=== PATIENT | female | born 1945 | race Caucasian/White ===

== ENCOUNTER → 2018-05-20 | Outpatient (CLI) | payer MEDICARE, OTHER ==
--- NOTE | 2018-05-20 14:03 | BD ---
EXAMINATION TYPE: Axial Bone Density DATE OF EXAM: 05/20/2018 COMPARISON: 05.19.2016 CLINICAL HISTORY: 73 YR OLD FEMALE.....ICD-10 CODE: Z79.890 POST MENOPAUSAL, M85.8 OSTEOPENIA Height: 63 Weight: 145 FRAX RISK QUESTIONS: History of Fracture in Adulthood: YES RISK FACTORS HISTORY OF: HX OF FINGER FRACTURES.....AT 72 YRS OLD Active: YES Diet low in dairy products/other sources of calcium: NO Postmenopausal woman: AT 54 YRS OLD MEDICATIONS: Additional Medications: HORMONE HAM, VIT D, CALCIUM, ASPIRIN, HX OF CHEMO AND RADIATION, Additional History: LT BREAST CANCER, 2016 EXAM MEASUREMENTS: Bone mineral densitometry was performed using the [employer] System. Bone mineral density as measured about the Lumbar spine is: ----- L1-L4(G/cm2): 0.795 T Score Values are as follows: ----- L1: -4.1 ----- L2: -3.7 ----- L3: -3.0 ----- L4: -2.4 ----- L1-L4: -3.2 Bone mineral density has: Increased 2.3% since study of: 05.19.2016 Bone mineral density about the R hip (g/cm2): 0.740 Bone mineral density about the L hip (g/cm2): 0.774 T Score values are as follows: -----R Neck: -2.0 -----L Neck: -1.8 -----R Total: -2.1 -----L Total: -1.9 Bone mineral density has: Increased 0.4% since study of: 05.19.2016 FRAX%s: THERE IS A 18.9% CHANCE OF A MAJOR OSTEOPOROTIC FX AND A 3.7% FOR HIP FX.....PROBABILITY O F FX IN 10 YRS TIME IMPRESSION: Osteoporosis (T Score less than -2.5) with regards to the lumbar spine. There is increased fracture risk and therapy is usually indicated based on age. Re-Screen 1-2 years. NOTE: T-SCORE=SD OF THE YOUNG ADULT MEAN.
== END | disposition home or self-care (01) ==
LOC: RADBDWWP 09:57
PROVIDERS: ATTEND Internal Medicine Hematology & Oncology
DX: C50.112 Malignant neoplasm of central portion of left female breast (principal); M81.0 Age-related osteoporosis without current pathological fracture; Z79.890 Hormone replacement therapy
CPT/HCPCS: 77080

== ENCOUNTER 2019-07-04 15:00 | Emergency (ER) | payer MEDICARE, OTHER ==
[2019-07-04 15:10] VITALS: BP 115/73; PULSE 82; RESP 18; TEMP 98.7
--- NOTE | 2019-07-04 16:09 | ED ---
Extremity Problem HPI - General Source: patient, RN notes reviewed Mode of arrival: wheelchair Limitations: no limitations <El Chacko - Last Filed: 07/04/19 16:26> <Srikanth Ponce - Last Filed: 07/04/19 17:50> - General Chief complaint: Extremity Problem,Nontraumatic Stated complaint: poss blood clot in leg Time Seen by Provider: 07/04/19 15:17 - History of Present Illness Initial comments: 74-year-old female presented emergency department chief complaint of right leg lump possible blood clot. Patient states that she has had some superficial from phlebitis in the past no DVT. Patient states she no she has some varicose veins so she has a lump the backside of her right leg. She states it is tender at time patient states she's been taking aspirin and increase her water intake states it does put on some but comes back. Patient denies any chest pain or shortness of breath. No trauma. (El Chacko) - Related Data Home Medications Medication Instructions Recorded Confirmed Anastrozole [Arimidex] 1 mg PO DAILY 07/04/19 07/04/19 Aspirin EC [Ecotrin Low Dose] 81 mg PO DAILY 07/04/19 07/04/19 Calcium Carbonate [Calcium] 600 mg PO BID 07/04/19 07/04/19 Cholecalciferol (Vitamin D3) 2,000 unit PO DAILY 07/04/19 07/04/19 [Vitamin D3] Multivitamin/Iron/Folic Acid 1 tab PO DAILY 07/04/19 07/04/19 [Centrum Women Tablet] Allergies Allergy/AdvReac Type Severity Reaction Status Date / Time erythromycin base Allergy INTERNAL Verified 07/04/19 16:13 BLEEDING tetracycline AdvReac CAUSES Verified 07/04/19 16:13 "CRYING JAG" Review of Systems ROS Other: All systems not noted in ROS Statement are negative. <El Chacko - Last Filed: 07/04/19 16:26> ROS Other: All systems not noted in ROS Statement are negative. <Srikanth Ponce - Last Filed: 07/04/19 17:50> ROS Statement: Those systems with pertinent positive or pertinent negative responses have been documented in the HPI. Past Medical History Past Medical History: Cancer Additional Past Medical History / Comment(s): INTERMITTENT FLASHING LIGHT ILEANA EYES AND BLOODY NOSES,CA LT BREAST DX AUG 2015,IRREG HR/STATES THINKS SHE HAD A BLOOD CLOT IN RIGHT LEG 6 MOS AGO. UNDIAGNOSED. History of Any Multi-Drug Resistant Organisms: None Reported Past Surgical History: Tonsillectomy Additional Past Surgical History / Comment(s): D&C Past Anesthesia/Blood Transfusion Reactions: Motion Sickness Past Psychological History: No Psychological Hx Reported Smoking Status: Former smoker Past Alcohol Use History: None Reported Past Drug Use History: None Reported - Past Family History Father Family Medical History: Cancer Additional Family Medical History / Comment(s): LUNG Mother Family Medical History: Cancer Additional Family Medical History / Comment(s): LUNG AND BRAIN <El Chacko - Last Filed: 07/04/19 16:26> General Exam Limitations: no limitations General appearance: alert, in no apparent distress Neck exam: Present: normal inspection. Absent: tenderness, meningismus, lymphadenopathy Respiratory exam: Present: normal lung sounds bilaterally. Absent: respiratory distress, wheezes, rales, rhonchi, stridor Cardiovascular Exam: Present: regular rate, normal rhythm, normal heart sounds. Absent: systolic murmur, diastolic murmur, rubs, gallop, clicks Extremities exam: Present: other (Right lower extremity there are multiple varicosities noted there is a hard lump just proximal to the knee, mild tenderness minimal erythema pedal pulses are equal bilaterally there is mild leg swelling noted.) Skin exam: Present: warm, dry, intact <El Chacko - Last Filed: 07/04/19 16:26> Course <Srikanth Ponce - Last Filed: 07/04/19 17:50> Vital Signs 07/04/19 15:07 Temperature 98.7 F Pulse Rate 82 Respiratory 18 Rate Blood Pressure 115/73 O2 Sat by Pulse 99 Oximetry - Reevaluation(s) Reevaluation #1: 07/04/19 17:50 PA supervision: Case reviewed and evaluated by me. I do agree with the assessment and plan. (Srikanth Ponce) Medical Decision Making <El Chacko - Last Filed: 07/04/19 16:26> - Medical Decision Making 74-year-old female presented right leg lump. This is related to his superficial thrombophlebitis within his varicose vein. Patient will continue aspirin, warm compresses and elevation. Patient will return for worsening symptoms. (El Chacko) Disposition Is patient prescribed a controlled substance at d/c from ED?: No Time of Disposition: 16:28 <El Chacko - Last Filed: 07/04/19 16:26> <Srikanth Ponce - Last Filed: 07/04/19 17:50> Clinical Impression: Superficial thrombophlebitis of right leg Disposition: HOME SELF-CARE Condition: Stable Instructions (If sedation given, give patient instructions): Superficial Thrombophlebitis (ED) Additional Instructions: Please return to the Emergency Department if symptoms worsen or any other concerns. Referrals: None,Stated [Primary Care Provider] - 1-2 days
--- NOTE | 2019-07-04 16:12 | US ---
EXAMINATION TYPE: US venous doppler duplex LE RT DATE OF EXAM: 07/04/2019 4:03 PM COMPARISON: NONE CLINICAL HISTORY: pain. Lump medial knee. SIDE PERFORMED: Right TECHNIQUE: The lower extremity deep venous system is examined utilizing real time linear array sonog tyler with graded compression, doppler sonography and color-flow sonography. VESSELS IMAGED: External Iliac Vein (EIV) Common Femoral Vein Deep Femoral Vein Greater Saphenous Vein * Femoral Vein Popliteal Vein Small Saphenous Vein * Proximal Calf Veins (* superficial vessels) Right Leg: Negative for DVT Grayscale, color doppler, spectral doppler imaging performed of the deep veins of the right lower ext remity. There is normal flow, compressibility, vascular waveforms. Cystic structure seen medial knee area of lump, possible superficial venous thrombosis. IMPRESSION: Cystic structure in the region of palpable abnormality could represent superficial venous thrombosis or subcutaneous cystic lesion. No deep venous thrombosis within the right lower extremity .
== END 2019-07-04 16:50 | disposition home or self-care (01) ==
LOC: EC 15:00
DX: I80.01 Phlebitis and thrombophlebitis of superficial vessels of right lower extremity (principal); I83.891 Varicose veins of right lower extremity with other complications; Z87.891 Personal history of nicotine dependence; Z88.1 Allergy status to other antibiotic agents; Z79.82 Long term (current) use of aspirin; Z79.899 Other long term (current) drug therapy; Z85.3 Personal history of malignant neoplasm of breast
CPT/HCPCS: 99283

== ENCOUNTER → 2019-12-09 | Outpatient (CLI) | payer MEDICARE, OTHER ==
--- NOTE | 2019-12-10 08:35 | PE ---
EXAMINATION TYPE: PET CT fusion skull to thigh DATE OF EXAM: 12/09/2019 COMPARISON: Prior PET/CT September 08, 2015 HISTORY: Breast cancer progress study. History of left-sided cancer diagnosed 2016. TECHNIQUE: Following the intravenous administration of 10.51 mCi of F-18 FDG, whole body images are performed from the skull base to the midthigh. Images are reviewed on the computer in the coronal, a xial, and sagittal planes. Reconstructed rotating images are created on independent workstation and reviewed on the computer. A noncontrast CT is performed in conjunction with the PET scan. SCAN: Subsequent Scan FINDINGS: SKULL BASE AND NECK: No new areas of suspicious hypermetabolic uptake. CHEST, MEDIASTINUM, AND HILAR REGION: No new areas of suspicious hypermetabolic uptake. Left breast i mplant noted. No recurrent left axillary adenopathy. ABDOMEN AND PELVIS: No new areas of suspicious hypermetabolic uptake. OSSEOUS STRUCTURES: No new areas of suspicious hypermetabolic uptake. OTHER CT: Mild emphysematous changes present. Heterogeneously dense fibroglandular tissue throughout the right breast with occasional dystrophic calcification. No axillary adenopathy bilaterally. Small hiatal hernia. There is S-shaped scoliosis on coronal images. Facet arthropathy lower lumbar levels is seen. IMPRESSION: No areas of suspicious hypermetabolic uptake to suggest local or metastatic neoplastic re currence.
== END | disposition home or self-care (01) ==
LOC: RADPETMAIN 14:45
PROVIDERS: ATTEND Internal Medicine Hematology & Oncology
DX: C50.112 Malignant neoplasm of central portion of left female breast (principal)
CPT/HCPCS: 78815; A9552

== ENCOUNTER → 2020-04-17 | Outpatient (CLI) | payer MEDICARE, OTHER ==
--- NOTE | 2020-04-18 07:08 | XR ---
EXAMINATION TYPE: XR pelvis AP view DATE OF EXAM: 04/17/2020 CLINICAL HISTORY: pain TECHNIQUE: Single view the pelvis is submitted. FINDINGS: No evidence for fracture, dislocation or bony lesion. Joint spaces are well-preserved. S I joints appear symmetric. IMPRESSION: 1. No acute fracture or dislocation seen. ICD 10 NO FRACTURE, INITIAL EVALUATION
== END | disposition home or self-care (01) ==
LOC: RAD 16:48
PROVIDERS: ATTEND Internal Medicine Hematology & Oncology
DX: C50.112 Malignant neoplasm of central portion of left female breast (principal); Z71.3 Dietary counseling and surveillance
CPT/HCPCS: 72170

== ENCOUNTER 2021-01-09 09:58 | Emergency (ER) | payer MEDICARE, OTHER ==
[2021-01-09 10:27] VITALS: BP 142/66; PULSE 68; RESP 18; TEMP 97.5
--- NOTE | 2021-01-09 12:23 | US ---
EXAMINATION TYPE: US venous doppler duplex LE RT DATE OF EXAM: 01/09/2021 11:56 AM COMPARISON: NONE CLINICAL HISTORY: pain and lump to leg. Lump on calf SIDE PERFORMED: Right TECHNIQUE: The lower extremity deep venous system is examined utilizing real time linear array sonog tyler with graded compression, doppler sonography and color-flow sonography. VESSELS IMAGED: Common Femoral Vein Deep Femoral Vein Greater Saphenous Vein * Femoral Vein Popliteal Vein Small Saphenous Vein * Proximal Calf Veins (* superficial vessels) Right Leg: Negative for DVT Varicose veins seen. IMPRESSION: 1. Right lower extremity ultrasound negative for deep venous thrombosis. 2. Varicose veins noted during the exam
--- NOTE | 2021-01-09 12:30 | ED ---
Lower Extremity Injury HPI - General Source: patient Mode of arrival: ambulatory Limitations: no limitations <Taylor Espinosa - Last Filed: 01/10/21 19:10> <Kirstin Dillon - Last Filed: 01/11/21 11:57> - General Chief Complaint: Extremity Injury, Lower Stated Complaint: possible blood clot Time Seen by Provider: 01/09/21 12:04 - History of Present Illness Initial Comments: Patient is a 75-year-old female presenting to the emergency Department to rule out a blood clot. Patient states she felt too small bumps on her right lower leg for the past 2 months. She states she came to the hospital to get her Covid vaccine but wants to make sure she does not have a blood clot first. She has no history of DVTs, she's had superficial blood clots in the past. She states she's noticed a small bumps over the past 2 months, no redness, no pain, no chest pain or shortness of breath, no cough. She has no further complaints. Upon arrival to the ER, her vitals are stable. (Taylor Espinosa) - Related Data Home Medications Medication Instructions Recorded Confirmed Anastrozole [Arimidex] 1 mg PO DAILY 07/04/19 07/04/19 Aspirin EC [Ecotrin Low Dose] 81 mg PO DAILY 07/04/19 07/04/19 Calcium Carbonate [Calcium] 600 mg PO BID 07/04/19 07/04/19 Cholecalciferol (Vitamin D3) 2,000 unit PO DAILY 07/04/19 07/04/19 [Vitamin D3] Multivitamin/Iron/Folic Acid 1 tab PO DAILY 07/04/19 07/04/19 [Centrum Women Tablet] Allergies Allergy/AdvReac Type Severity Reaction Status Date / Time erythromycin base Allergy INTERNAL Verified 01/09/21 10:27 BLEEDING tetracycline AdvReac CAUSES Verified 01/09/21 10:27 "CRYING JAG" Review of Systems ROS Other: All systems not noted in ROS Statement are negative. <Taylor Espinosa - Last Filed: 01/10/21 19:10> ROS Other: All systems not noted in ROS Statement are negative. <Kirstin Dillon - Last Filed: 01/11/21 11:57> ROS Statement: Those systems with pertinent positive or pertinent negative responses have been documented in the HPI. Past Medical History Past Medical History: Cancer Additional Past Medical History / Comment(s): INTERMITTENT FLASHING LIGHT ILEANA EYES AND BLOODY NOSES,CA LT BREAST DX AUG 2015,IRREG HR/STATES THINKS SHE HAD A BLOOD CLOT IN RIGHT LEG 6 MOS AGO. UNDIAGNOSED. History of Any Multi-Drug Resistant Organisms: None Reported Past Surgical History: Breast Surgery, Tonsillectomy Additional Past Surgical History / Comment(s): D&C Past Anesthesia/Blood Transfusion Reactions: Motion Sickness Past Psychological History: No Psychological Hx Reported Smoking Status: Never smoker Past Alcohol Use History: None Reported Past Drug Use History: None Reported - Past Family History Father Family Medical History: Cancer Additional Family Medical History / Comment(s): LUNG Mother Family Medical History: Cancer Additional Family Medical History / Comment(s): LUNG AND BRAIN <Taylor Espinosa L - Last Filed: 01/10/21 19:10> General Exam Limitations: no limitations <Taylor Espinosa L - Last Filed: 01/10/21 19:10> - General Exam Comments Initial Comments: GENERAL: Patient is well-developed and well-nourished. Patient is nontoxic and in no acute distress. HEAD: Atraumatic, normocephalic. EYES: Pupils equal round and reactive to light, extraocular movements intact, sclera anicteric, conjunctiva are normal. Eyelids were unremarkable. ENT: TMs normal, nares patent, oropharynx clear without exudates. Moist mucous membranes. NECK: Normal range of motion, supple without lymphadenopathy or JVD. LUNGS: Unlabored respirations. Breath sounds clear to auscultation bilaterally and equal. No wheezes rales or rhonchi. HEART: Regular rate and rhythm without murmurs, rubs or gallops. ABDOMEN: Soft, nontender, normoactive bowel sounds. No guarding, no rebound. No masses appreciated. : Deferred MUSCULOSKELETAL: Normal extremities with adequate strength and normal range of motion, no pitting or edema. No clubbing or cyanosis. NEUROLOGICAL: Patient is alert and oriented x 3. Motor and sensory are also intact. Cranial nerves II through XII grossly intact. Symmetrical smile. Normal speech, normal gait. PSYCH: Normal mood, normal affect. SKIN: Warm, Dry, normal turgor, no rashes. Varicose veins noted on the right lower leg, lateral aspect. No redness, no erythema, no pain with palpation. (Taylor Espinosa) Course Vital Signs 01/09/21 10:23 Temperature 97.5 F L Pulse Rate 68 Respiratory 18 Rate Blood Pressure 142/66 O2 Sat by Pulse 97 Oximetry Medical Decision Making <Taylor Espinosa - Last Filed: 01/10/21 19:10> <Kirstin Dillon - Last Filed: 01/11/21 11:57> - Medical Decision Making He is a 75-year-old female here with concerns of possible blood clot in her right lower leg. She's had 2 bumps in this area, she does have some varicose veins on exam, no evidence of erythema, swelling or signs of infection. Ultrasound of the right lower leg reveals no evidence for acute DVT. I discussed this with the patient. She is stable for discharge. She can follow- up with her regular doctor. She is in agreement with this plan of care and is stable for discharge. Case discussed with Dr. Dillon. (Taylor Espinosa) I was available for consultation in the emergency department. The history and physical exam were done by the midlevel provider. I was consulted for this patients care. I reviewed the case with the midlevel provider and based on their presentation of the patient, I agree with the assessment, medical decision making and plan of care as documented. Chart was dictated using Nitro PDF dictation software. Attempts were made to correct any dictation errors however some typographical errors may persist. Patient was seen during a national state of emergency due to the Covid-19 pandemic. (Kirstin Dillon) Disposition Is patient prescribed a controlled substance at d/c from ED?: No Time of Disposition: 12:30 <Taylor Espinosa - Last Filed: 01/10/21 19:10> <Kirstin Dillon - Last Filed: 01/11/21 11:57> Clinical Impression: Varicose veins of right lower extremity Disposition: HOME SELF-CARE Condition: Stable Instructions (If sedation given, give patient instructions): Normal Exam (ED) Additional Instructions: Please return to the Emergency Department if symptoms worsen or any other concerns. Follow-up with your regular family doctor. Referrals: None,Stated [Primary Care Provider] - 1-2 days
== END 2021-01-09 12:46 | disposition home or self-care (01) ==
LOC: EC 09:58
DX: I83.91 Asymptomatic varicose veins of right lower extremity (principal); Z79.82 Long term (current) use of aspirin
CPT/HCPCS: 99283

== ENCOUNTER → 2022-05-19 | Outpatient (CLI) | payer MEDICARE, OTHER ==
--- NOTE | 2022-05-19 12:58 | FL ---
EXAMINATION TYPE: FL barium swallow DATE OF EXAM: 05/19/2022 CLINICAL INDICATION: 77-year-old female R13.19, dysphagia COMPARISON: None Total Fluoroscopy Time: 2 minutes 48 seconds 71 images obtained. FINDINGS: We note a single episode of deep penetration when the patient was drinking prone. There is a large Zenker's diverticulum at the C7-T1 level. The upper cervical esophagus above this le peter appears to distend normally though there is impression on to the back wall from anterior spurring at C6-C7. There is filling and spontaneous incomplete emptying of the diverticulum that results in p ersistent residuals in the piriform sinuses. The cervical esophagus just below the level of the Zenke r's is moderately narrowed. Mild to moderate thickening of the cricopharyngeus. Remainder of the thoracic esophagus shows normal course and caliber. No suspicious filling defect or mucosal lesion is seen. [id number] tertiary peristaltic waves are noted. There is a small sliding hiatal hernia demonstrated. An episode of spontaneous moderate gastroesophag eal reflux is demonstrated during the study IMPRESSION: 1. Moderate to large sized Zenker's diverticulum which fills with ingested contrast. It shows spontan eous incomplete emptying. Contrast that refluxes out of the diverticulum contributes to persistent mo derate residuals in the piriform sinuses. 2. An episode of deep penetration noted when the patient was drinking prone, likely incidental. 3. Moderate narrowing of the cervical esophagus below the level of the Zenker's probably in part due to a thickened cricopharyngeus. 4. Mild esophageal dysmotility. 5. Small sliding hiatal hernia with moderate gastroesophageal reflux.
== END | disposition home or self-care (01) ==
LOC: RADUSWWP 10:59
PROVIDERS: ATTEND Surgery Plastic and Reconstructive Surgery
DX: K21.9 Gastro-esophageal reflux disease without esophagitis (principal); K44.0 Diaphragmatic hernia with obstruction, without gangrene
CPT/HCPCS: 74220

== ENCOUNTER 2023-01-17 20:59 | Emergency (ER) | payer MEDICARE, OTHER ==
[2023-01-17 21:05] VITALS: BP 137/77; PULSE 74; RESP 20; TEMP 98.4
--- NOTE | 2023-01-17 21:20 | ED ---
URI HPI - General Chief Complaint: Upper Respiratory Infection Stated Complaint: Recheck Time Seen by Provider: 01/17/23 21:10 Source: patient Mode of arrival: ambulatory Limitations: no limitations - History of Present Illness Initial Comments: Patient is a 77-year-old female presenting with chief complaint of URI-like symptoms. Yesterday she said experiencing productive cough, congestion, rhinorrhea, sore throat, and fever. She's been taking aspirin and acetaminophen. She is requesting Covid testing. She denies any chest pain, difficulty breathing, palpitations, weakness, dysphagia, ear pain, abdominal pain, nausea, vomiting, diarrhea. - Related Data Home Medications Medication Instructions Recorded Confirmed Anastrozole [Arimidex] 1 mg PO DAILY 07/04/19 07/04/19 Aspirin EC [Ecotrin Low Dose] 81 mg PO DAILY 07/04/19 07/04/19 Calcium Carbonate [Calcium] 600 mg PO BID 07/04/19 07/04/19 Cholecalciferol (Vitamin D3) 2,000 unit PO DAILY 07/04/19 07/04/19 [Vitamin D3] Multivitamin/Iron/Folic Acid 1 tab PO DAILY 07/04/19 07/04/19 [Centrum Women Tablet] Allergies Allergy/AdvReac Type Severity Reaction Status Date / Time erythromycin base Allergy INTERNAL Verified 01/17/23 21:05 BLEEDING tetracycline AdvReac CAUSES Verified 01/17/23 21:05 "CRYING JAG" Review of Systems ROS Statement: Those systems with pertinent positive or pertinent negative responses have been documented in the HPI. ROS Other: All systems not noted in ROS Statement are negative. Past Medical History Past Medical History: Cancer Additional Past Medical History / Comment(s): INTERMITTENT FLASHING LIGHT ILEANA EYES AND BLOODY NOSES,CA LT BREAST DX AUG 2015,IRREG HR/STATES THINKS SHE HAD A BLOOD CLOT IN RIGHT LEG 6 MOS AGO. UNDIAGNOSED. History of Any Multi-Drug Resistant Organisms: None Reported Past Surgical History: Breast Surgery, Tonsillectomy Additional Past Surgical History / Comment(s): D&C Past Anesthesia/Blood Transfusion Reactions: Motion Sickness Past Psychological History: No Psychological Hx Reported Smoking Status: Never smoker Past Alcohol Use History: None Reported Past Drug Use History: None Reported - Past Family History Father Family Medical History: Cancer Additional Family Medical History / Comment(s): LUNG Mother Family Medical History: Cancer Additional Family Medical History / Comment(s): LUNG AND BRAIN General Exam Limitations: no limitations General appearance: alert, in no apparent distress Head exam: Present: atraumatic, normocephalic, normal inspection Eye exam: Present: normal appearance, EOMI. Absent: periorbital swelling, periorbital tenderness ENT exam: Present: normal oropharynx, mucous membranes moist Neck exam: Present: normal inspection, full ROM Respiratory exam: Present: normal lung sounds bilaterally. Absent: respiratory distress, wheezes, rales, rhonchi, stridor Cardiovascular Exam: Present: regular rate, normal rhythm, normal heart sounds. Absent: systolic murmur, diastolic murmur, rubs, gallop, clicks Neurological exam: Present: alert, oriented X3, CN II-XII intact Psychiatric exam: Present: normal affect, normal mood Skin exam: Present: warm, dry, intact, normal color. Absent: rash Course Vital Signs 01/17/23 21:00 Temperature 98.4 F Pulse Rate 74 Respiratory 20 Rate Blood Pressure 137/77 O2 Sat by Pulse 96 Oximetry Medical Decision Making - Medical Decision Making Was pt. sent in by a medical professional or institution (, PA, DIET CONSULTANT, urgent care, hospital, or alf...) When possible be specific @ -No Did you speak to anyone other than the patient for history (EMS, parent, family, police, friend...)? What history was obtained from this source @ -No Did you review nursing and triage notes (agree or disagree)? Why? @ -I reviewed and agree with nursing and triage notes Were old charts reviewed (outside hosp., previous admission, EMS record, old EKG, old radiological studies, urgent care reports/EKG's, alf records)? Report findings @ -No old charts were reviewed Differential Diagnosis (chest pain, altered mental status, abdominal pain women, abdominal pain men, vaginal bleeding, weakness, fever, dyspnea, syncope, headache, dizziness, GI bleed, back pain, seizure, CVA, palpatations, mental h ealth, musculoskeletal)? @ -Differential includes Covid, influenza, other viral URI, pneumonia, this is not all-inclusive list. EKG interpreted by me (3pts min.). @ -As above X-rays interpreted by me (1pt min.). @ -None done CT interpreted by me (1pt min.). @ -None done U/S interpreted by me (1pt. min.). @ -None done What testing was considered but not performed or refused? (CT, X-rays, U/S, labs)? Why? @ -Chest x-ray considered, patient declined What meds were considered but not given or refused? Why? @ -None Did you discuss the management of the patient with other professionals (professionals i.e. Dr., PA, DIET CONSULTANT, lab, RT, psych nurse, social work nurse, garbage collector driver, teacher, water resources technical officer, case finishing machine adjuster)? Give summary @ -No Was smoking cessation discussed for >3mins.? @ -No Was critical care preformed (if so, how long)? @ -No Were there social determinants of health that impacted care today? How? (Homelessness, low income, unemployed, alcoholism, drug addiction, transportation, low edu. Level, literacy, decrease access to med. care, snf, rehab)? @ -No Was there de-escalation of care discussed even if they declined (Discuss DNR or withdrawal of care, Hospice)? DNR status @ -No What co-morbidities impacted this encounter? (DM, HTN, Smoking, COPD, CAD, Cancer, CVA, ARF, Chemo, Hep., AIDS, mental health diagnosis, sleep apnea, morbid obesity)? @ -None Was patient admitted / discharged? Hospital course, mention meds given and route, prescriptions, significant lab abnormalities, going to OR and other pertinent info. @ -Patient is 77-year-old female presenting with URI like symptoms. On physical examination heart and lungs are clear to auscultation and normal HEENT exam. Patient tested positive for Covid. She is educated on supportive treatment and quarantine guidelines. She declined antiviral medication at this time. Follow-up with PCP. Report back to ER with any new or worsening symptoms. Discussed return parameters and answered all questions. Patient conveyed verbal understanding and agreed to the plan. I discussed this case in detail w ith my attending Dr. Jackson Undiagnosed new problem with uncertain prognosis? @ -No Drug Therapy requiring intensive monitoring for toxicity (Heparin, Nitro, Insulin, Cardizem)? @ -No Were any procedures done? @ -No Diagnosis/symptom? @ -Covid Acute, or Chronic, or Acute on Chronic? @ -Acute Uncomplicated (without systemic symptoms) or Complicated (systemic symptoms)? @ -Uncomplicated Side effects of treatment? @ -No Exacerbation, Progression, or Severe Exacerbation? @ -No Poses a threat to life or bodily function? How? (Chest pain, [place], [place], pneumonia, PE, COPD, DKA, ARF, appy, cholecystitis, CVA, Diverticulitis, Homicidal, Suicidal, threat to staff... and all critical care pts) @ -No - Lab Data Lab Results 01/17/23 Range/Units 21:18 Coronavirus (PCR) Detected A (Not Detectd) Disposition Clinical Impression: COVID Disposition: HOME SELF-CARE Condition: Good Instructions (If sedation given, give patient instructions): COVID-19 (Coronavirus Disease 2019) (ED) Additional Instructions: Follow-up with PCP. Report back to ER with any new or worsening symptoms. Take Motrin and Tylenol as needed for fever and pain control. Quarantine for 5 days. If after 5 days you are mostly symptom-free and fever free for 24 hours this is then followed by 5 days of strict mask usage while in public. Is patient prescribed a controlled substance at d/c from ED?: No Referrals: Nonstaff,Physician [REFERRING] - 1-2 days Time of Disposition: 22:15
== END 2023-01-17 22:20 | disposition home or self-care (01) ==
LOC: EC 20:59
DX: U07.1 COVID-19 (principal); Z88.1 Allergy status to other antibiotic agents
CPT/HCPCS: 87635; 99283

== ENCOUNTER 2023-01-28 10:03 | Emergency (ER) | payer MEDICARE, OTHER ==
[2023-01-28 10:16] VITALS: TEMP 98.1
--- NOTE | 2023-01-28 10:36 | ED ---
General Adult HPI - General Chief complaint: Recheck/Abnormal Lab/Rx Stated complaint: Recheck COVID Time Seen by Provider: 01/28/23 10:20 Source: patient, RN notes reviewed Mode of arrival: ambulatory Limitations: no limitations - History of Present Illness Initial comments: 77-year-old female presents emergency Department for covid recheck. Patient s tates that she tested positive for Covid on 01/17/23. She states at that time she had fever, cough. She states that her symptoms have resolved but she would like to be retested before she goes back to her normal activities. Denies shortness of breath, cough, fever at this time. - Related Data Home Medications Medication Instructions Recorded Confirmed Anastrozole [Arimidex] 1 mg PO DAILY 07/04/19 07/04/19 Aspirin EC [Ecotrin Low Dose] 81 mg PO DAILY 07/04/19 07/04/19 Calcium Carbonate [Calcium] 600 mg PO BID 07/04/19 07/04/19 Cholecalciferol (Vitamin D3) 2,000 unit PO DAILY 07/04/19 07/04/19 [Vitamin D3] Multivitamin/Iron/Folic Acid 1 tab PO DAILY 07/04/19 07/04/19 [Centrum Women Tablet] Allergies Allergy/AdvReac Type Severity Reaction Status Date / Time erythromycin base Allergy INTERNAL Verified 01/28/23 10:16 BLEEDING tetracycline AdvReac CAUSES Verified 01/28/23 10:16 "CRYING JAG" Review of Systems ROS Statement: Those systems with pertinent positive or pertinent negative responses have been documented in the HPI. ROS Other: All systems not noted in ROS Statement are negative. Past Medical History Past Medical History: Cancer Additional Past Medical History / Comment(s): INTERMITTENT FLASHING LIGHT ILEANA EYES AND BLOODY NOSES,CA LT BREAST DX AUG 2015,IRREG HR/STATES THINKS SHE HAD A BLOOD CLOT IN RIGHT LEG 6 MOS AGO. UNDIAGNOSED. History of Any Multi-Drug Resistant Organisms: None Reported Past Surgical History: Breast Surgery, Tonsillectomy Additional Past Surgical History / Comment(s): D&C Past Anesthesia/Blood Transfusion Reactions: Motion Sickness Past Psychological History: No Psychological Hx Reported Smoking Status: Never smoker Past Alcohol Use History: Rare Past Drug Use History: None Reported - Past Family History Father Family Medical History: Cancer Additional Family Medical History / Comment(s): LUNG Mother Family Medical History: Cancer Additional Family Medical History / Comment(s): LUNG AND BRAIN General Exam Limitations: no limitations General appearance: alert, in no apparent distress Head exam: Present: atraumatic, normocephalic, normal inspection Eye exam: Present: normal appearance ENT exam: Present: normal exam, mucous membranes moist Respiratory exam: Present: normal lung sounds bilaterally. Absent: respiratory distress, wheezes, rales, rhonchi, stridor Cardiovascular Exam: Present: regular rate, normal rhythm, normal heart sounds. Absent: systolic murmur, diastolic murmur, rubs, gallop, clicks Skin exam: Present: warm, dry, intact, normal color. Absent: rash Course Vital Signs 01/28/23 10:13 Temperature 98.1 F Pulse Rate 57 L Respiratory 20 Rate Blood Pressure 121/64 O2 Sat by Pulse 98 Oximetry Medical Decision Making - Medical Decision Making Was pt. sent in by a medical professional or institution (, PA, VENDING MACHINE ATTENDANT, urgent care, hospital, or penitentiary...) When possible be specific @ -No Did you speak to anyone other than the patient for history (EMS, parent, family, police, friend...)? What history was obtained from this source @ -No Did you review nursing and triage notes (agree or disagree)? Why? @ -I reviewed and agree with nursing and triage notes Were old charts reviewed (outside hosp., previous admission, EMS record, old EKG, old radiological studies, urgent care reports/EKG's, penitentiary records)? Report findings @ -No old charts were reviewed Differential Diagnosis (chest pain, altered mental status, abdominal pain women, abdominal pain men, vaginal bleeding, weakness, fever, dyspnea, syncope, headache, dizziness, GI bleed, back pain, seizure, CVA, palpatations, mental health, musculoskeletal)? @ -not applicable EKG interpreted by me (3pts min.). @ -None X-rays interpreted by me (1pt min.). @ -None done CT interpreted by me (1pt min.). @ -None done U/S interpreted by me (1pt. min.). @ -None done What testing was considered but not performed or refused? (CT, X-rays, U/S, labs)? Why? @ -None What meds were considered but not given or refused? Why? @ -None Did you discuss the management of the patient with other professionals (shelly quiros i.e. , PA, VENDING MACHINE ATTENDANT, lab, RT, psych nurse, social science teacher, exterior work helper, teacher, fire information officer, case mgr)? Give summary @ -No Was smoking cessation discussed for >3mins.? @ -No Was critical care preformed (if so, how long)? @ -No Were there social determinants of health that impacted care today? How? (Homelessness, low income, unemployed, alcoholism, drug addiction, transportation, low edu. Level, literacy, decrease access to med. care, halfway, rehab)? @ -No Was there de-escalation of care discussed even if they declined (Discuss DNR or withdrawal of care, Hospice)? DNR status @ -No What co-morbidities impacted this encounter? (DM, HTN, Smoking, COPD, CAD, Cancer, CVA, ARF, Chemo, Hep., AIDS, mental health diagnosis, sleep apnea, morbid obesity)? @ -None Was patient admitted / discharged? Hospital course, mention meds given and route, prescriptions, significant lab abnormalities, going to OR and other pertinent info. @ -Discharge. Patient presented to emergency department for Covid recheck. She denies symptoms at this time. Covid swab was obtained and we'll call her with the results. patient discharged in stable condition. Case discussed with my attending, Dr. Hernandez Undiagnosed new problem with uncertain prognosis? @ -No Drug Therapy requiring intensive monitoring for toxicity (Heparin, Nitro, Insulin, Cardizem)? @ -No Were any procedures done? @ -No Diagnosis/symptom? @ -covid recheck Acute, or Chronic, or Acute on Chronic? @ -acute Uncomplicated (without systemic symptoms) or Complicated (systemic symptoms)? @ -uncomplicated Side effects of treatment? @ -No Exacerbation, Progression, or Severe Exacerbation? @ -No Poses a threat to life or bodily function? How? (Chest pain, [place], [place], pneumonia, PE, COPD, DKA, ARF, appy, cholecystitis, CVA, Diverticulitis, Homicidal, Suicidal, threat to staff... and all critical care pts) @ -No Disposition Clinical Impression: History of COVID-19 Disposition: HOME SELF-CARE Condition: Stable Additional Instructions: Please return to the Emergency Department if symptoms worsen or any other c oncerns. Is patient prescribed a controlled substance at d/c from ED?: No Referrals: Kirstin Calvin MD [Primary Care Provider] - 1-2 days Time of Disposition: 10:51
[2023-01-28 11:44] VITALS: BP 133/61; PULSE 58; RESP 18
== END 2023-01-28 11:44 | disposition home or self-care (01) ==
LOC: EC 10:03
DX: Z86.16 Personal history of COVID-19 (principal); Z79.82 Long term (current) use of aspirin; Z88.1 Allergy status to other antibiotic agents; Z88.6 Allergy status to analgesic agent
CPT/HCPCS: 87635; 99283

== ENCOUNTER 2023-10-21 19:57 | Emergency (ER) | payer MEDICARE, OTHER ==
[2023-10-21 20:22] VITALS: TEMP 97.7
--- NOTE | 2023-10-21 20:24 | ED ---
General Adult HPI - General Source: patient, family Mode of arrival: ambulatory Limitations: no limitations <Kirsten Lopez - Last Filed: 10/21/23 20:22> - History of Present Illness Onset/Timin -: month(s) Consistency: intermittent Improves with: none Worsens with: none <Iron Matthew - Last Filed: 11/02/23 01:29> - General Chief complaint: Shortness of Breath Stated complaint: PATRICE Time Seen by Provider: 10/21/23 20:23 - History of Present Illness Initial comments: 78 year old female presents to the emergency department for evaluation of oracio rtness of breath. She states that this has been going on for around 7 days but noticed it worse today. She states that it has been difficult to do her mall walking. She also admits to sleeping more up-right which seems to help. Denies recent fever, chest pain. (Kirsten Lopez) This patient is a 78-year-old woman presenting to have evaluation for change in her respiratory status. She states that going back probably a month contrast to the above note, that she has occasional feeling she needs to take a deep breath. It's that sometimes when she walks at the mall at a brisk pace she'll feel like she is short of breath. She has no fever or chills. No cough. No chest pain. She does not have diaphoresis. She has no dyspnea currently. She has not noted change in urination or bowel movements. 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 No history of lung disease (Iron Matthew) - Related Data Home Medications Medication Instructions Recorded Confirmed Anastrozole [Arimidex] 1 mg PO DAILY 07/04/19 07/04/19 Aspirin EC [Ecotrin Low Dose] 81 mg PO DAILY 07/04/19 07/04/19 Calcium Carbonate [Calcium] 600 mg PO BID 07/04/19 07/04/19 Cholecalciferol (Vitamin D3) 2,000 unit PO DAILY 07/04/19 07/04/19 [Vitamin D3] Multivitamin/Iron/Folic Acid 1 tab PO DAILY 07/04/19 07/04/19 [Centrum Women Tablet] Previous Rx's Medication Instructions Recorded Melatonin 3 mg PO HS PRN #20 tablet 10/22/23 diphenhydrAMINE [Benadryl] 25 mg PO HS PRN #20 capsule 10/22/23 Allergies Allergy/AdvReac Type Severity Reaction Status Date / Time erythromycin base Allergy INTERNAL Verified 10/21/23 20:17 BLEEDING tetracycline AdvReac CAUSES Verified 10/21/23 20:17 "CRYING JAG" Review of Systems ROS Other: All systems not noted in ROS Statement are negative. <Kirsten Lopez - Last Filed: 10/21/23 20:22> ROS Other: All systems not noted in ROS Statement are negative. Constitutional: Denies: fever, chills ENT: Denies: throat pain, congestion Respiratory: Denies: cough, dyspnea, wheezes, hemoptysis Cardiovascular: Reports: dyspnea on exertion. Denies: chest pain, palpitations, edema, syncope Gastrointestinal: Denies: abdominal pain, nausea, vomiting Genitourinary: Denies: dysuria, hematuria Musculoskeletal: Denies: back pain Skin: Denies: rash Neurological: Denies: headache, weakness, numbness <Iron Matthew - Last Filed: 11/02/23 01:29> ROS Statement: Those systems with pertinent positive or pertinent negative responses have been documented in the HPI. Past Medical History Past Medical History: Cancer Additional Past Medical History / Comment(s): INTERMITTENT FLASHING LIGHT ILEANA EYES AND BLOODY NOSES,CA LT BREAST DX AUG 2015,IRREG HR/STATES THINKS SHE HAD A BLOOD CLOT IN RIGHT LEG 6 MOS AGO. UNDIAGNOSED. History of Any Multi-Drug Resistant Organisms: None Reported Past Surgical History: Breast Surgery, Tonsillectomy Additional Past Surgical History / Comment(s): D&C Past Anesthesia/Blood Transfusion Reactions: Motion Sickness Past Psychological History: No Psychological Hx Reported Smoking Status: Never smoker Past Alcohol Use History: Rare Past Drug Use History: None Reported - Past Family History Father Family Medical History: Cancer Additional Family Medical History / Comment(s): LUNG Mother Family Medical History: Cancer Additional Family Medical History / Comment(s): LUNG AND BRAIN <Kirsten Lopez - Last Filed: 10/21/23 20:22> General Exam Limitations: no limitations <Kirsten Lopez - Last Filed: 10/21/23 20:22> Limitations: no limitations General appearance: alert, in no apparent distress Head exam: Present: atraumatic, normocephalic Eye exam: Present: normal appearance. Absent: scleral icterus, conjunctival injection ENT exam: Present: normal oropharynx Neck exam: Present: normal inspection Respiratory exam: Present: normal lung sounds bilaterally. Absent: respiratory distress, wheezes, rales, rhonchi, stridor Cardiovascular Exam: Present: regular rate, normal rhythm, normal heart sounds. Absent: systolic murmur, diastolic murmur, rubs, gallop GI/Abdominal exam: Present: soft. Absent: distended, tenderness, guarding, rebound, rigid, mass Extremities exam: Present: normal inspection, normal capillary refill. Absent: pedal edema, calf tenderness Back exam: Present: normal inspection. Absent: CVA tenderness (R), CVA tenderness (L) Neurological exam: Present: alert Skin exam: Present: warm, dry, intact, normal color. Absent: rash <Iron Matthew - Last Filed: 11/02/23 01:29> - General Exam Comments Initial Comments: Visual Physical Exam Vital signs reviewed General: Well-appearing, nontoxic, no acute distress. Head: Normocephalic, atraumatic Eyes: PERRLA, EOMI ENT: Airway patent Chest: Nonlabored breathing Skin: No visual rash, normal skin tone Neuro: Alert and oriented 3 Musculoskeletal: No gross abnormalities (Kirsten Lopez) Course Vital Signs 10/21/23 10/22/23 20:13 00:31 Temperature 97.7 F Pulse Rate 74 56 L Respiratory 22 16 Rate Blood Pressure 133/69 155/84 O2 Sat by Pulse 97 98 Oximetry EKG Findings - EKG Comments: EKG Findings:: Possible old septal infarct - EKG Results: EKG: interpreted by ERMD, sinus rhythm (With sinus arrhythmia), normal axis, normal ST/T EKG shows: bradycardia (Rate 58 bpm) - Blocks, [place], Hypertrophy, ST Abn: AV and intraventricular conduction: right bundle branch block (fixed/intermittent, complete/incomplete) (Possible right ventricular conduction delay) <Iron Matthew - Last Filed: 11/02/23 01:29> Medical Decision Making <Kirsten Lopez - Last Filed: 10/21/23 20:22> - Lab Data Result diagrams: 10/21/23 20:19 10/21/23 20:19 <Iron Matthew - Last Filed: 11/02/23 01:29> - Medical Decision Making Quick note preformed by Kirsten Lopez PA-C (Kirsten Lopez) The patient had chest x-ray which I interpreted as negative for acute infiltrate, pneumothorax, congestive heart failure Was pt. sent in by a medical professional or institution (MARTIN Macedo, RESOURCE DEVELOPMENT MANAGER, urgent care, hospital, or assisted...) When possible be specific @ -[No] Did you speak to anyone other than the patient for history (EMS, parent, family, police, friend...)? What history was obtained from this source @ -[No] Did you review nursing and triage notes (agree or disagree)? Why? @ -[I reviewed and agree with nursing and triage notes] Were old charts reviewed (outside hosp., previous admission, EMS record, old EKG, old radiological studies, urgent care reports/EKG's, assisted records)? Report findings @ -[No old charts were reviewed] Differential Diagnosis (chest pain, altered mental status, abdominal pain women, abdominal pain men, vaginal bleeding, weakness, fever, dyspnea, syncope, headache, dizziness, GI bleed, back pain, seizure, CVA, palpatations, mental health, musculoskeletal)? @ -[Differential Dyspnea: Coronary syndrome, arrhythmia, tamponade, asthma, COPD, pulmonary embolism, pneumonia, pneumothorax, pulmonary effusion, anaphylaxis, diabetic ketoacidosis, flailed chest, pulmonary contusion, diaphragmatic rupture, anemia, neuromuscular, this is not meant to be an all-inclusive list. EKG interpreted by me (3pts min.). @ -[I interpreted as above] X-rays interpreted by me (1pt min.). @ -[Interpreted as above CT interpreted by me (1pt min.). @ -[None done] U/S interpreted by me (1pt. min.). @ -[None done] What testing was considered but not performed or refused? (CT, X-rays, U/S, labs)? Why? @ -[None] What meds were considered but not given or refused? Why? @ -[None] Did you discuss the management of the patient with other professionals (professionals i.e. MARTIN Macedo, RESOURCE DEVELOPMENT MANAGER, lab, RT, psych nurse, social work associate, kennel keeper, teacher, facilities officer, case management coordinator)? Give summary @ -[No] Was smoking cessation discussed for >3mins.? @ -[No] Was critical care preformed (if so, how long)? @ -[No] Were there social determinants of health that impacted care today? How? (Homelessness, low income, unemployed, alcoholism, drug addiction, transportation, low edu. Level, literacy, decrease access to med. care, retirement, rehab)? @ -[No] Was there de-escalation of care discussed even if they declined (Discuss DNR or withdrawal of care, Hospice)? DNR status @ -[No] What co-morbidities impacted this encounter? (DM, HTN, Smoking, COPD, CAD, Cancer, CVA, ARF, Chemo, Hep., AIDS, mental health diagnosis, sleep apnea, morbid obesity)? @ -[None] Was patient admitted / discharged? Hospital course, mention meds given and route, prescriptions, significant lab abnormalities, going to OR and other pertinent info. @ -[hospital course] Undiagnosed new problem with uncertain prognosis? @ -[No] Drug Therapy requiring intensive monitoring for toxicity (Heparin, Nitro, Insulin, Cardizem)? @ -[No] Were any procedures done? @ -[No] Diagnosis/symptom? @ -[Acute dyspnea Acute, or Chronic, or Acute on Chronic? @ -[Acute Uncomplicated (without systemic symptoms) or Complicated (systemic symptoms)? @ -[Uncomplicated Side effects of treatment? @ -[No] Exacerbation, Progression, or Severe Exacerbation? @ -[No] Poses a threat to life or bodily function? How? (Chest pain, [place], [place], pneumonia, PE, COPD, DKA, ARF, appy, cholecystitis, CVA, Diverticulitis, Homicidal, Suicidal, threat to staff... and all critical care pts) @ -[No] (Iron Matthew) - Lab Data Lab Results 10/21/23 10/21/23 10/21/23 Range/Units 20:19 20:19 20:19 WBC 5.0 (3.8-10.6) k/uL RBC 4.43 (3.80-5.40) m/uL Hgb 14.3 (11.4-16.0) gm/dL Hct 42.8 (34.0-46.0) % MCV 96.7 (80.0-100.0) fL MCH 32.3 (25.0-35.0) pg MCHC 33.4 (31.0-37.0) g/dL RDW 12.1 (11.5-15.5) % Plt Count 236 (150-450) k/uL MPV 7.8 Neutrophils % 73 % Lymphocytes % 16 % Monocytes % 6 % Eosinophils % 2 % Basophils % 1 % Neutrophils # 3.6 (1.3-7.7) k/uL Lymphocytes # 0.8 L (1.0-4.8) k/uL Monocytes # 0.3 (0-1.0) k/uL Eosinophils # 0.1 (0-0.7) k/uL Basophils # 0.0 (0-0.2) k/uL Sodium 137 (137-145) mmol/L Potassium 4.3 (3.5-5.1) mmol/L Chloride 107 (98-107) mmol/L Carbon Dioxide 24 (22-30) mmol/L Anion Gap 6 mmol/L BUN 28 H (7-17) mg/dL Creatinine 0.85 (0.52-1.04) mg/dL Est GFR (CKD-EPI)AfAm 77 (>60 ml/min/1.73 sqM) Est GFR (CKD-EPI)NonAf 67 (>60 ml/min/1.73 sqM) Glucose 133 H (74-99) mg/dL Calcium 9.3 (8.4-10.2) mg/dL Total Bilirubin 0.7 (0.2-1.3) mg/dL AST 28 (14-36) U/L ALT 22 (4-34) U/L Alkaline Phosphatase 77 (38-126) U/L Total Protein 6.5 (6.3-8.2) g/dL Albumin 4.0 (3.5-5.0) g/dL Urine Color Colorless Urine Appearance Cloudy H (Clear) Urine pH 7.0 (5.0-8.0) Ur Specific [place] 1.019 (1.001-1.035) Urine Protein Negative (Negative) Urine Glucose (UA) Negative (Negative) Urine Ketones Negative (Negative) Urine Blood Negative (Negative) Urine Nitrite Negative (Negative) Urine Bilirubin Negative (Negative) Urine Urobilinogen <2.0 (<2.0) mg/dL Ur Leukocyte Esterase Trace H (Negative) Urine RBC 1 (0-5) /hpf Urine WBC 1 (0-5) /hpf Amorphous Sediment Occasional H (None) /hpf Urine Mucus Rare H (None) /hpf Influenza Type A (PCR) (Not Detectd) Influenza Type B (PCR) (Not Detectd) RSV (PCR) (Not Detectd) SARS-CoV-2 (PCR) (Not Detectd) 10/21/23 Range/Units 20:19 WBC (3.8-10.6) k/uL RBC (3.80-5.40) m/uL Hgb (11.4-16.0) gm/dL Hct (34.0-46.0) % MCV (80.0-100.0) fL MCH (25.0-35.0) pg MCHC (31.0-37.0) g/dL RDW (11.5-15.5) % Plt Count (150-450) k/uL MPV Neutrophils % % Lymphocytes % % Monocytes % % Eosinophils % % Basophils % % Neutrophils # (1.3-7.7) k/uL Lymphocytes # (1.0-4.8) k/uL Monocytes # (0-1.0) k/uL Eosinophils # (0-0.7) k/uL Basophils # (0-0.2) k/uL Sodium (137-145) mmol/L Potassium (3.5-5.1) mmol/L Chloride (98-107) mmol/L Carbon Dioxide (22-30) mmol/L Anion Gap mmol/L BUN (7-17) mg/dL Creatinine (0.52-1.04) mg/dL Est GFR (CKD-EPI)AfAm (>60 ml/min/1.73 sqM) Est GFR (CKD-EPI)NonAf (>60 ml/min/1.73 sqM) Glucose (74-99) mg/dL Calcium (8.4-10.2) mg/dL Total Bilirubin (0.2-1.3) mg/dL AST (14-36) U/L ALT (4-34) U/L Alkaline Phosphatase (38-126) U/L Total Protein (6.3-8.2) g/dL Albumin (3.5-5.0) g/dL Urine Color Urine Appearance (Clear) Urine pH (5.0-8.0) Ur Specific [place] (1.001-1.035) Urine Protein (Negative) Urine Glucose (UA) (Negative) Urine Ketones (Negative) Urine Blood (Negative) Urine Nitrite (Negative) Urine Bilirubin (Negative) Urine Urobilinogen (<2.0) mg/dL Ur Leukocyte Esterase (Negative) Urine RBC (0-5) /hpf Urine WBC (0-5) /hpf Amorphous Sediment (None) /hpf Urine Mucus (None) /hpf Influenza Type A (PCR) Not Detected (Not Detectd) Influenza Type B (PCR) Not Detected (Not Detectd) RSV (PCR) Not Detected (Not Detectd) SARS-CoV-2 (PCR) Not Detected (Not Detectd) Disposition <Kirsten Lopez - Last Filed: 10/21/23 20:22> Is patient prescribed a controlled substance at d/c from ED?: No <Iron Matthew - Last Filed: 11/02/23 01:29> Clinical Impression: Dyspnea Disposition: HOME SELF-CARE Condition: Good Instructions (If sedation given, give patient instructions): Dyspnea (ED) Prescriptions: diphenhydrAMINE [Benadryl] 25 mg PO HS PRN #20 capsule PRN Reason: Fatigue Melatonin 3 mg PO HS PRN #20 tablet PRN Reason: Fatigue Referrals: Kirstin Calvin MD [Primary Care Provider] - 1-2 days Zenaida Price MD [STAFF PHYSICIAN] - 1-2 days Aren Curran MD [STAFF PHYSICIAN] - 1-2 days
[2023-10-21 20:42] LABS: Basophils % (A) 1 %; Eosinophils # (A) 0.1 k/uL (0-0.7); Eosinophils % (A) 2 %; HCT 42.8 % (34.0-46.0); HGB 14.3 gm/dL (11.4-16.0); Lymphocytes # (A) 0.8 k/uL (1.0-4.8); Lymphocytes % (A) 16 %; MCH 32.3 pg (25.0-35.0); MCHC 33.4 g/dL (31.0-37.0); MCV 96.7 fL (80.0-100.0); Mean Platelet Volume 7.8; Monocytes # (A) 0.3 k/uL (0-1.0); Monocytes % (A) 6 %; Neutrophils # (A) 3.6 k/uL (1.3-7.7); Neutrophils % (A) 73 %; Platelet Count 236 k/uL (150-450); RBC 4.43 m/uL (3.80-5.40); RDW 12.1 % (11.5-15.5)
[2023-10-21 20:49] LABS: ALT 22 U/L (4-34); AST 28 U/L (14-36); African American GFR (CKD) 77 (>60 ml/min/1.73 sqM); Alkaline Phosphatase 77 U/L (38-126); Anion Gap 6 mmol/L; Blood Urea Nitrogen 28 mg/dL (7-17); Calcium 9.3 mg/dL (8.4-10.2); Carbon Dioxide 24 mmol/L (22-30); Chloride 107 mmol/L (98-107); Glucose 133 mg/dL (74-99); Non-African American GFR(CKD) 67 (>60 ml/min/1.73 sqM); Potassium 4.3 mmol/L (3.5-5.1); Sodium 137 mmol/L (137-145); Total Bilirubin 0.7 mg/dL (0.2-1.3); Total Protein 6.5 g/dL (6.3-8.2)
--- NOTE | 2023-10-21 21:13 | XR ---
EXAMINATION TYPE: XR chest 2V DATE OF EXAM: 10/21/2023 8:55 PM CLINICAL INDICATION:Female, 78 years old with history of shortness of breath; H COMPARISON: Chest radiographs from 12/21/2015 TECHNIQUE: XR chest 2V Frontal and lateral views of the chest. FINDINGS: Lungs/Pleura: There is flattening of the diaphragm with increased lucency of the lungs. No evidence o f pneumothorax, pleural effusion or focal consolidation. Pulmonary vascularity: Unremarkable. Heart/mediastinum: Cardiomediastinal silhouette is unremarkable. Musculoskeletal: No acute osseous pathology. IMPRESSION: 1. No acute cardiopulmonary disease process. 2. COPD changes.
[2023-10-21 21:17] LABS: Amorphous Sediment,Urine Occasional /hpf; Appearance,Urine Cloudy (Clear); Bilirubin,Urine Negative (Negative); Blood,Urine Negative (Negative); Color,Urine Colorless; Glucose,Urine (UA) Negative (Negative); Ketones,Urine Negative (Negative); Leukocyte Esterase,Urine Trace (Negative); Mucus,Urine Rare /hpf; Nitrite,Urine Negative (Negative); Protein,Urine Negative (Negative); RBC,Urine 1 /hpf (0-5); Specific Gravity,Urine 1.019 (1.001-1.035); Urobilinogen,Urine <2.0 mg/dL (<2.0); WBC,Urine 1 /hpf (0-5)
[2023-10-22 00:53] VITALS: BP 155/84; PULSE 56; RESP 16
== END 2023-10-22 00:32 | disposition home or self-care (01) ==
LOC: EC 19:57
DX: I25.2 Old myocardial infarction (principal); J44.9 Chronic obstructive pulmonary disease, unspecified; Z79.82 Long term (current) use of aspirin; Z88.1 Allergy status to other antibiotic agents; Z88.8 Allergy status to other drugs, medicaments and biological substances; Z20.822 Contact with and (suspected) exposure to COVID-19
CPT/HCPCS: 36415; 71046; 80053; 81001; 85025; 87636; 93005; 99285